=== PATIENT | female | born 1945 | race Caucasian/White ===

== ENCOUNTER → 2021-11-18 09:00 | Outpatient (CLI) | payer MEDICARE, OTHER, SELFPAY ==
--- NOTE | 2021-11-18 | DI.MRI.S_ITS ---
PROCEDURE: MR LUMBAR SPINE WO CON INDICATIONS: Low back pain, unspecified TECHNIQUE: Noncontrast sagittal T1 spin echo and T2 fast echo, sagittal STIR, and T2 fast spin echo through the lumbar spine. In cases with scoliosis, additional coronal T2 fast spin echo may be performed. COMPARISON: [facility], , L-SPINE WITHOUT CONTRAST, 07/16/2016, 9:14. FINDINGS: Image quality: Excellent. Alignment and Curvature: There is normal bony alignment. Bone Marrow: Marrow is of normal overall signal. No acute vertebral body compression fractures. Spinal Cord: Conus medullaris terminates at the L1 level. Visualized cord demonstrates normal signal and size. Paraspinous Soft Tissues: No paravertebral masses. T12-L1: Normal appearance. L1-L2: Disc height is preserved. Circumferential disc bulge with mild central and no foraminal stenosis L2-L3: Disc space narrowing and circumferential disc bulge with hypertrophic facet joints results in moderate central stenosis. Moderate left and mild right foraminal stenosis L3-L4: Disc space narrowing with circumferential disc bulge and hypertrophic facet joints results in moderate central stenosis. Moderate left and no right foraminal stenosis L4-L5: Disc space narrowing with hypertrophic facet joints and ligamentum flavum laxity results in moderate central stenosis. Severe right and moderate left foraminal stenosis L5-S1: Disc space narrowing with circumferential disc bulge noted. No central stenosis. Moderate right and no left foraminal stenosis IMPRESSION: Multilevel degenerative disc disease and arthropathy results in varying degrees of central and foraminal stenosis including moderate central stenosis L2-3, L3-4 and L4-5 Approved by: Scottie Dalton M.D. on 11/18/2021 at 11:03
== END ==
PROVIDERS: Family Provider Internal Medicine; PCP Internal Medicine; Referring Provider Internal Medicine; Visit Provider Internal Medicine
DX: M51.36 Other intervertebral disc degeneration, lumbar region (principal); M47.816 Spondylosis without myelopathy or radiculopathy, lumbar region; M48.061 Spinal stenosis, lumbar region without neurogenic claudication; M54.50 Low back pain, unspecified
CPT/HCPCS: 72148

== ENCOUNTER 2024-05-18 09:55 | Day surgery (SDC) | payer MEDICARE, OTHER, SELFPAY ==
[2024-05-10 12:48] VITALS: BMI 25.7
[2024-05-18] VITALS (8 sets, daily range): BP systolic 134–154; BP diastolic 71–83; PULSE 76–88; RESP 14–18; TEMP 36.3–37.2; O2SAT 95–97; BMI 25.1
[2024-05-18] MEDS: LACTATED RINGERS 1,000 ML 42 ML IV (10:40)
[2024-05-18] MEDS: ACETAMINOPHEN 325 MG TABLET 975 MG PO (10:40)
[2024-05-18] MEDS: FAMOTIDINE 20 MG/2 ML VIAL IV (10:53)
[2024-05-18] MEDS: ONDANSETRON 4 MG/2 ML INJ IV (10:53)
--- NOTE | 2024-05-18 11:40 | PM.PREOP ---
Pre-operative Note COVID-19 COVID-19 status: Not tested Interval Note History & Physical reviewed/Exam performed by Physician: Yes Changes to H&P: No
[2024-05-18] MEDS: CEFAZOLIN 2 GM/100 ML PREMIX 100 ML IV (12:11)
--- NOTE | 2024-05-18 12:15 | SUR.OPER ---
Lithotomy on padded OR bed, head on pillow, arms secured on padded arm boards at <90 degrees abduction. Legs secured in padded yellow fins stirrups.
[2024-05-18] MEDS: BUPIVACAINE 0.25% W/ EPI 30 ML VIAL INJ (12:50)
--- NOTE | 2024-05-18 13:38 | PM.GYNOP.1 ---
Operative Date/Time/Diagnoses Date of procedure: 05/18/24 Time of procedure: 11:50 Pre-op diagnosis: Stage III vaginal vault prolapse Post-op diagnosis: same Procedure & Clinicians Procedure: Procedures Operation Date: 05/18/24 11:15 Actual Procedure Side Surgeon p Carlo Colpocleisis with perineoplasty Rufus Reynolds MD Indications: Karine is a 78-year-old , who has had no vaginal bleeding since her hysterectomy in 2009 presented with a sudden episode of light spotting/bleeding about 4 or 5 days ago which lasted about an hour. In addition she feels a sense of pelvic pressure and discomfort. She underwent transvaginal hysterectomy with A&P repair in sacral spinous ligament fixation in [address] Anny Kilpatrick and has had no problems whatsoever since that time. Examination showed no evidence of vaginal bleeding but instead a stage III prolapse of the vaginal cuff and after discussion regarding all options for management/treatment, the patient has opted to proceed with [place] colpocleisis. She presents now for her scheduled surgery. Surgeon: Rufus Reynolds Anesthesia Type: General Operative Notes Findings: Stage III vaginal vault prolapse with anterior compartment scarring consistent with prior anterior repair. Closure Type: primary Specimen(s): none Estimated blood loss (mL): 25 Blood products transfused: none Procedure in detail: With the patient under satisfactory general endotracheal anesthesia in the modified dorsal lithotomy position, the vagina, perineum, and lower abdominal wall were prepped and draped in the usual manner for colpocleisis. A pre-surgical safety time-out was then taken in accordance with [facility] Main OR protocols. A short weighted speculum was placed in the vagina and the vaginal cuff identified visually. The vaginal cuff was grasped with 2 T clamps and mobilized downward. The area of mucosal incision anteriorly starting 2 cm distal to the vaginal cuff scar, 3 cm in width, and extending distal to 4 cm from the hymeneal ring was made with marking pen. Posteriorly a similar rectangle was marked from 2 cm distal to the vaginal cuff posteriorly, 3 cm in width and extending to within 4 cm of the posterior hymenal ring. Vaginal mucosa both anterior and posterior which was to be excised was infiltrated with 0.25% Marcaine with epinephrine. The mucosa both anterior and posterior was excised with sharp and blunt dissection. The most cephalic edges of the mucosa were then brought together with 2-0 Vicryl interrupted. The denuded anterior and posterior tissues were then brought together with 2-0 Vicryl using [id number] stitches at consecutive levels followed by approximation of the lateral mucosa with 2-0 Vicryl interrupted. Five layers of [id number] stitches and lateral interrupted were used to bring the denuded areas of anterior and posterior tissues together in the midline. The distal most vaginal mucosa was then brought together with 2-0 Vicryl interrupted, thus completing the performance of the colpocleisis. A leonel-shaped incision of the skin overlying the perineal body up into the distal most vagina was made with monopolar cutting and the mucosa excised in the usual manner. Sharp and blunt dissection was used to expose the distal levators on both sides and 0 Vicryl interrupted were used to approximate the distal levators. Additional 2-0 Vicryl stitches were used to bring the introitus together in midline and substance of the perineal body was also plicated in the midline with 2-0 Vicryl interrupted. The vaginal mucosa was then brought together with 2-0 Vicryl and a running interlocking stitch all the way down to the perineal body. Case was then completed and the patient awakened from general anesthesia. She was then transferred to the PACU for a period of observation and recovery having tolerated procedure well. Complications: none Complications: none Post-operative Condition: stable Disposition: PACU Plan for aftercare: Routine postoperative care with follow-up planned for 2 weeks after surgery or as needed
== END 2024-05-18 14:46 | disposition home or self-care (01) ==
PROVIDERS: Family Provider Internal Medicine; PCP Internal Medicine; Referring Provider Obstetrics & Gynecology; Visit Provider Obstetrics & Gynecology
PROC: (CPT 57120; principal; 2024-05-18 11:15)
DX: N99.3 Prolapse of vaginal vault after hysterectomy (principal); Z87.891 Personal history of nicotine dependence
CPT/HCPCS: 57120; J0690; J1885; J2405; J2704; J3010